=== PATIENT | male | born 1980 | race Asian ===

== ENCOUNTER 2024-09-13 00:25 | Emergency (ER) | payer OTHER ==
[~2024-09-13] VITALS: Ht 172.7 cm; Wt 86.4 kg
[2024-09-13 00:30] VITALS: BP 126/90; PULSE 106; RESP 20; TEMP 97.6; O2SAT 98
[2024-09-13 01:26] LABS: COVID AG,FIA SOURCE NASAL SWAB
[2024-09-13 01:52] LABS: SARS-COV2 (COVID) ANTIGEN,FIA Negative (Negative)
[2024-09-13 01:53] LABS: INFLUENZA TYPE A NEGATIVE FOR TYPE A (NEGATIVE); INFLUENZA TYPE B NEGATIVE FOR TYPE B (NEGATIVE)
== END 2024-09-13 06:05 | disposition home or self-care (01) ==
LOC: EMS 00:27
DX: J06.9 Acute upper respiratory infection, unspecified (principal); Z59.00 Homelessness unspecified; Z20.822 Contact with and (suspected) exposure to COVID-19
CPT/HCPCS: 87804; 99283